=== PATIENT | male | born 1970 | race Caucasian/White ===

== ENCOUNTER 2017-05-04 21:14 | Emergency (ER) | payer SELFPAY ==
[~2017-05-04] VITALS: Ht 167.6 cm; Wt 73.0 kg
[2017-05-04] MEDS ORDERED: LISINOPRIL (21:35)
[2017-05-04] MEDS ORDERED: SIMVASTATIN (21:36)
[2017-05-04] MEDS ORDERED: FARXIGA (21:36)
[2017-05-04] MEDS ORDERED: METOPROLOL SUCCINATE (21:36)
[2017-05-04] MEDS ORDERED: METFORMIN (21:36)
[2017-05-04 22:36] VITALS: BP 132/77
== END 2017-05-04 22:41 ==
LOC: EME 21:14
DX: F10.129 Alcohol abuse with intoxication, unspecified (principal); Y90.6 Blood alcohol level of 120-199 mg/100 ml; R45.851 Suicidal ideations; E11.9 Type 2 diabetes mellitus without complications; E78.5 Hyperlipidemia, unspecified; I10 Essential (primary) hypertension; Z79.84 Long term (current) use of oral hypoglycemic drugs
CPT/HCPCS: 99281; 99285; G0480